=== PATIENT | female | born 1950 | race African-American/Black ===

== ENCOUNTER 2016-10-18 22:35 | Emergency (ER) | payer OTHER ==
[~2016-10-18] VITALS: Ht 157.5 cm; Wt 73.5 kg
--- NOTE | ~2016-10-18 | EKG ---
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: deion : 1950 Requested By: Lucas Askew Order Number: [id number] MD: Dante Holt Measurements Intervals [place] Rate: 85 P: 23 SC: 234 QRS: -18 QRSD: 96 T: -8 QT: 366 QTc: 436 Interpretive Statements Sinus rhythm Prolonged SC interval Left ventricular hypertrophy Inferior infarct, age indeterminate Nonspecific T abnormalities, inferior leads Compared to ECG 10/04/2016 21:52:35 No significant change was found Electronically Signed On 10-19-2016 9:06:24 CDT by Dante Holt [email or web address] <ELECTRONICALLY SIGNED> By: Dante Holt MD, [facility] 10/19/16 [id number] Dante Holt MD, [facility] /EPI
[~2016-10-18 22:35] MED LIST: ASPIR 8181 M1 PO; CARVEDILOL12.5 MG PO; GLUCOPHAGE1000 MG PO; LIPITOR 20 MG T20 M1 PO; LISINOPRIL20 MG PO; MICROZIDE12.5 MG PO; OMEPRAZOLE 20 M20 MG PO; TUSSIONEX PENN473 ML PO
[2016-10-18 23:41] LABS: ABSOLUTE NEUTROPHILS 5.8 thou/uL (1.4-8.2); BASOPHILS 0.9 % (0.0-2.0); EOSINOPHILS 0.8 % (0.0-3.0); HEMATOCRIT 40.6 % (37.0-47.0); HEMOGLOBIN 13.4 gm/dL (12.0-15.0); LYMPHOCYTES 37.4 % (24.0-44.0); MCH 26.8 pg (26.0-34.0); MONOCYTES 7.7 % (1.0-8.0); PLATELET COUNT 260 thou/uL (150-400); POLYS 53.2 % (36.0-66.0); RBC 5.01 mil/uL (4.20-5.00); RDW 13.9 % (10.5-14.5); WBC 10.8 thou/uL (4.0-11.0)
[2016-10-18 23:48] LABS: MANUAL DIFF NO
[2016-10-19 00:25] LABS: CALCIUM 9.5 mg/dL (8.5-10.1); CREATININE 0.9 mg/dL (0.6-1.0); POTASSIUM 3.7 mmol/L (3.5-5.1)
[2016-10-19] MEDS ORDERED: NORCO 5-325 TA1 EACH PO (00:27)
[2016-10-19 00:29] VITALS: BP 114/75
[2016-10-19 00:30] LABS: ALBUMIN 3.9 g/dL (3.4-5.0); TOTAL BILIRUBIN 0.3 mg/dL (<0.1-1.0); TOTAL PROTEIN 8.2 g/dL (6.4-8.2)
[2016-10-19] MEDS ORDERED: ONDANSETRON HCL4 M2 PO (00:34)
== END 2016-10-19 00:43 | disposition home or self-care (01) ==
LOC: ER 22:35
PROVIDERS: Emergency Medicine
DX: M25.562 Pain in left knee (principal); I11.0 Hypertensive heart disease with heart failure; I50.9 Heart failure, unspecified; E11.9 Type 2 diabetes mellitus without complications; Z95.5 Presence of coronary angioplasty implant and graft; Z85.3 Personal history of malignant neoplasm of breast; Z88.1 Allergy status to other antibiotic agents